=== PATIENT | male | born 1985 | race African-American/Black ===

== ENCOUNTER 2017-05-25 18:42 | Emergency (ER) | payer SELFPAY ==
[~2017-05-25] VITALS: Ht 180.3 cm; Wt 88.5 kg
[~2017-05-25 18:42] MED LIST: DILA100C PO; PHEN300C3 PO
[2017-05-25 18:45] VITALS: BP 153/99; PULSE 94; RESP 24; TEMP 97.3; O2SAT 100
--- NOTE | 2017-05-25 19:08 | PD ---
HPI Chief Complaint: Oral / Dental Pain or Problem Time Seen by Provider: 19:00 Travel History International Travel<30 days: No Contact w/Intl Traveler<30days: No Traveled to known affect area: No History of Present Illness HPI Patient comes in complaining of right lower mandible pain that began 2 days ago. Patient states he believes he had a seizure and hit his jaw on the dresser causing the pain. Pain has been getting worse for the past couple days. Patient states he's applied ice with no improvement of symptoms. Pain is worse trying to eat. Denies any radiation of pain. Describes pain as pressure-like in nature that radiates throughout his jaw. Patient denies anything like this in the past. States he is taking his seizure medicine as prescribed and is managed by his physician on [place]. Denies any fevers, difficulty swallowing, chest pain, shortness of breath, headaches, numbness or tingling anywhere, or neck pain. PFSH Past Medical History Diminished Hearing: No Seizures: Yes Social History Alcohol Use: No Tobacco Use: No Substance Use: No Allergies-Medications (Allergen,Severity, Reaction): Coded Allergies: No Known Allergies (Verified Allergy, Unknown, 05/25/17) Reported Meds & Prescriptions Reported Meds & Active Scripts Active Naprosyn (Naproxen) 500 Mg Tab 500 Mg PO Q12HR PRN Clindamycin (Clindamycin HCl) 150 Mg Cap 2 Cap PO Q6H 10 Days Phenytoin Extended 300 Mg Cap 300 Mg PO BID Reported Dilantin (Phenytoin Extended) Unknown Strength Cap Unknown Dose PO TID Review of Systems Except as stated in HPI: all other systems reviewed are Neg Physical Exam Narrative GENERAL: Well-developed, well nourished, in no acute distress, and non-ill appearing. SKIN: Focused skin assessment warm and dry. HEAD: Atraumatic. Normocephalic. EYES: Pupils equal and round. EOMI. No scleral icterus. No injection or drainage. ENT: No nasal bleeding or discharge. Mucous membranes pink and moist. Patient' s has a dental caries noted right lower molar with palpable and visible abscess noted. Floor of the mouth, submandibular, and submental are all soft palpation. NECK: Trachea midline. No cervical lymphadenopathy. Supple. No nuclear rigidity. RESPIRATORY: No accessory muscle use. No respiratory distress. MUSCULOSKELETAL: No obvious deformities. No clubbing. No cyanosis. No edema. Full range of motion. NEUROLOGICAL: Awake and alert. No obvious cranial nerve deficits. Motor grossly within normal limits. Normal speech. PSYCHIATRIC: Appropriate mood and affect; insight and judgment normal. Data Data Last Documented VS Vital Signs Date Time Temp Pulse Resp B/P (MAP) Pulse Ox O2 Delivery O2 Flow Rate FiO2 05/25/17 20:09 05/25/17 18:45 97.3 94 24 100 Room Air Orders Orders Mandible, Complete (Min 4vws) (05/25/17 ) Ibuprofen (Motrin) (05/25/17 19:30) Acetamin-Hydrocod 325-5 Mg ([place] 5-325 (05/25/17 19:30) Clindamycin (Cleocin) (05/25/17 19:30) [facility] Medical Decision Making Medical Screen Exam Complete: Yes Emergency Medical Condition: Yes Interpretation(s) X-ray of the mandible read by the radiologist shows: No acute disease. Differential Diagnosis Fracture, dental abscess, dental infection, dental caries, other Narrative Course The patient presented with dental pain. There is no fever. There is no significant facial swelling or evidence of cellulitis. There is poor dentition and evidence of drainable abscess. The abscess was drained intraorally. The patient tolerated the procedure well. There is no evidence of significant deep or invading abscess at this time. The patient will be placed on antibiotics and pain medication. The patient was instructed to follow up with a dentist. Warnings were discussed with the patient regarding worsening of infection. The patient is to return if pain worsens, develops progressive swelling or facial redness or fever. The patient agrees with plan. Patient in no obvious distress upon re-evaluation. All pertinent Radiology result(s) discussed with patient. Patient was asked if they wanted to speak to my attending, which the patient did not wish to do at this time. Discussed patient with Dr. Stark prior to discharge, who is in agreement with plan of care and disposition. Any questions/concerns in reference to patient diagnosis/ condition discussed and clarified prior to patient's discharge. Reinforced sheer importance of close follow up with patient's primary physician or primary care clinic and dentist. Instructed patient to return to ED immediately, if symptoms return/worsen. Pt showed understanding of above instructions. Further instructions and recommendations were detailed in discharge paperwork. Pt ambulated without difficulty out of ED at discharge. Procedures Procedure Narrative Verbal consent was obtained. Topical Hurricaine spray was used to successfully anesthetized the abscess. A #15 scalpel used to make 1 cm incision across the area of abscess and purulent discharge was drained. Patient tolerated procedure well. There were no complications. Patient reports improvement of symptoms. Diagnosis Primary Impression: Dental abscess Referrals: [facility] Dentist Patient Instructions: Dental Abscess (ED), Dental Caries (DC), General Instructions Additional Instructions: Follow-up with your primary care physician and dentist as soon as possible. Rinse mouth with warm salt water gargles. Take all medication as prescribed. Return to the emergency department if symptoms get worse. Med/Other Pt SpecificInfo: Prescription(s) given Scripts Naproxen (Naprosyn) 500 Mg Tab 500 MG PO Q12HR Y for PAIN SCALE 1 TO 10, #14 TAB 0 Refills Prov: Marilyn Stark MD 05/25/17 Clindamycin (Clindamycin) 150 Mg Cap 2 CAP PO Q6H for Infection for 10 Days, CAP 0 Refills Prov: Marilyn Stark MD 05/25/17 Disposition: 01 DISCHARGE HOME Condition: Stable Duarte Gunn May 25, 2017 19:08
[2017-05-25] MEDS ORDERED: ACETAMINOPHEN/HYDROcodone 325 MG/5 MG TAB PO ONE (19:30)
[2017-05-25] MEDS ORDERED: IBUPROFEN 800 MG TAB PO ONE (19:30)
[2017-05-25] MEDS ORDERED: CLINDAMYCIN 150 MG CAP PO ONE (19:30)
--- NOTE | 2017-05-25 19:33 | RADRPT ---
EXAM DATE/TIME: 05/25/2017 19:13 [place] COMPARISON: No previous studies available for comparison. INDICATIONS : Pain from blow to face during possible seizure. MEDICAL HISTORY : None. SURGICAL HISTORY : None. ENCOUNTER: Initial ACUITY: 1 day PAIN SCORE: 8/10 LOCATION: Right mandible. FINDINGS: Frontal, lateral, and oblique views of the mandible were performed. No fracture is seen. The condyl ar heads and necks appear normal. No dislocation is identified. Bony mineralization is normal. CONCLUSION: No acute disease. Lavell Barrientos MD on May 25, 2017 at 19:30 Board Certified Radiologist. This report was verified electronically.
[2017-05-25] MEDS ORDERED: NAPR500 PO (19:41)
[2017-05-25] MEDS ORDERED: CLIN1CAP5 PO (19:41)
== END 2017-05-25 20:10 | disposition home or self-care (01) ==
LOC: NEPE 18:42
DX: K04.7 Periapical abscess without sinus (principal); K02.9 Dental caries, unspecified; R56.9 Unspecified convulsions
CPT/HCPCS: 41800; 70110

== ENCOUNTER 2017-07-02 10:53 | Emergency (ER) | payer SELFPAY ==
[~2017-07-02] VITALS: Ht 180.3 cm; Wt 88.0 kg
[~2017-07-02 10:53] MED LIST changes: +CLIN1CAP5 PO; +NAPR500 PO
[2017-07-02 10:55] VITALS: BP 119/75; PULSE 78; RESP 18; TEMP 98.5; O2SAT 98
[2017-07-02] MEDS ORDERED: DILA100C PO (11:06)
--- NOTE | 2017-07-02 11:26 | PD ---
HPI Chief Complaint: Seizure Time Seen by Provider: 11:05 Travel History International Travel<30 days: No Contact w/Intl Traveler<30days: No Traveled to known affect area: No History of Present Illness HPI 32-year-old male presents to the emergency department for evaluation after having a seizure today. Patient states that he was at his mother's house when he had a seizure. He states he was watching TV and had a seizure while on the bed. He denies any head injury. Patient does have history of seizures. He states he is currently on Dilantin. He states he is taking this as prescribed. However, he states that he does not follow with a neurologist. Upon further questioning. He does state he was so neurologist a month ago who prescribed him his Dilantin. The patient denies any other medical problems. He takes no other prescribed medications. Patient states he has had seizures for approximately 8 years. He denies any incontinence or biting of his tongue. He said has no complaints at this time and states he feels well. No chest pressures breath. No headache. No abdominal pain. No nausea, vomiting, diarrhea. He has no other medical problems and takes no other prescribed medications. He denies any alcohol use or illicit drug use. Patient told me his last seizure prior to today was approximately 3 weeks ago. [facility] Past Medical History Diminished Hearing: No Seizures: Yes Tetanus Vaccination: Unknown Influenza Vaccination: No Past Surgical History Neurologic Surgery: Yes (BRAIN TUMOR RESECTION) Social History Alcohol Use: No Tobacco Use: No Substance Use: No Allergies-Medications (Allergen,Severity, Reaction): Coded Allergies: No Known Allergies (Verified Allergy, Unknown, 07/02/17) Reported Meds & Prescriptions Reported Meds & Active Scripts Active Reported Dilantin (Phenytoin Extended) 100 Mg Cap 100 Mg PO HS Review of Systems Except as stated in HPI: all other systems reviewed are Neg Physical Exam Narrative GENERAL: Well-nourished, well-developed male patient, afebrile. SKIN: Focused skin assessment warm/dry. No lacerations or abrasions HEAD: Normocephalic. Atraumatic. ENT: Mucosa pink and moist. No erythema or exudates. No uvular edema. No uvular , palatal, or tonsillar deviation. Airway patent. Nasal turbinates appear normal without nasal blood, purulent drainage or septal hematoma. Bilateral tympanic membranes are clear without erythema or perforation. EYES: No scleral icterus. No injection or drainage. NECK: Supple, trachea midline. No JVD or lymphadenopathy. CARDIOVASCULAR: Regular rate and rhythm without murmurs, gallops, or rubs. RESPIRATORY: Breath sounds equal bilaterally. No accessory muscle use. Lungs sounds are clear to auscultation. GASTROINTESTINAL: Abdomen soft, non-tender, nondistended. MUSCULOSKELETAL: No cyanosis, or edema. Bilateral upper and lower extremity strength 5/5. All extremities are neurovascularly intact. BACK: Nontender without obvious deformity. No CVA tenderness. Data Data Last Documented VS Vital Signs Date Time Temp Pulse Resp B/P (MAP) Pulse Ox O2 Delivery O2 Flow Rate FiO2 07/02/17 14:53 07/02/17 13:45 67 15 100 Room Air 07/02/17 10:55 98.5 Orders Orders Complete Blood Count With Diff (07/02/17 11:19) Phenytoin (Dilantin) (07/02/17 11:19) Drug Screen, Random Urine (07/02/17 11:19) Electrocardiogram (07/02/17 ) Blood Glucose (07/02/17 11:19) Ecg Monitoring (07/02/17 11:19) Iv Access Insert/Monitor (07/02/17 11:19) Oximetry (07/02/17 11:19) Comprehensive Metabolic Panel (07/02/17 11:19) Sodium Chloride 0.9% Flush (Ns Flush) (07/02/17 11:30) Urinalysis - C+S If Indicated (07/02/17 11:19) Magnesium (Mg) (07/02/17 11:19) Fosphenytoin Inj (Cerebyx Inj) (07/02/17 13:30) Sodium Chlor 0.9% 1000 Ml Inj (Ns 1000 M (07/02/17 13:30) Urine Culture (07/02/17 13:41) Labs Laboratory Tests Test 07/02/17 11:35 07/02/17 13:41 White Blood Count 9.4 TH/MM3 Red Blood Count 5.23 MIL/MM3 Hemoglobin 16.7 GM/DL Hematocrit 48.9 % Mean Corpuscular Volume 93.5 FL Mean Corpuscular Hemoglobin 32.0 PG Mean Corpuscular Hemoglobin Concent 34.2 % Red Cell Distribution Width 14.3 % Platelet Count 122 TH/MM3 Mean Platelet Volume 9.3 FL Neutrophils (%) (Auto) 75.3 % Lymphocytes (%) (Auto) 18.3 % Monocytes (%) (Auto) 5.7 % Eosinophils (%) (Auto) 0.4 % Basophils (%) (Auto) 0.3 % Neutrophils # (Auto) 7.1 TH/MM3 Lymphocytes # (Auto) 1.7 TH/MM3 Monocytes # (Auto) 0.5 TH/MM3 Eosinophils # (Auto) 0.0 TH/MM3 Basophils # (Auto) 0.0 TH/MM3 CBC Comment DIFF FINAL Differential Comment Blood Urea Nitrogen 19 MG/DL Creatinine 1.55 MG/DL Random Glucose 79 MG/DL Total Protein 9.2 GM/DL Albumin 4.8 GM/DL Calcium Level 10.0 MG/DL Magnesium Level 2.1 MG/DL Alkaline Phosphatase 109 U/L Aspartate Amino Transf (AST/SGOT) 76 U/L Alanine Aminotransferase (ALT/SGPT) 136 U/L Total Bilirubin 0.4 MG/DL Sodium Level 137 MEQ/L Potassium Level 3.7 MEQ/L Chloride Level 102 MEQ/L Carbon Dioxide Level 26.3 MEQ/L Anion Gap 9 MEQ/L Estimat Glomerular Filtration Rate 63 ML/MIN Phenytoin (Dilantin) Level 3.4 MCG/ML Urine Color YELLOW Urine Turbidity HAZY Urine pH 5.5 Urine Specific [place] 1.022 Urine Protein 30 mg/dL Urine Glucose (UA) NEG mg/dL Urine Ketones NEG mg/dL Urine Occult Blood NEG Urine Nitrite NEG Urine Bilirubin NEG Urine Urobilinogen LESS THAN 2.0 MG/DL Urine Leukocyte Esterase SMALL Urine RBC 2 /hpf Urine WBC 14 /hpf Urine Squamous Epithelial Cells 1 /hpf Urine Hyaline Casts 6 /lpf Urine Granular Casts 1 /lpf Urine Mucus FEW /lpf Microscopic Urinalysis Comment CULTURE INDICATED Urine Opiates Screen NEG Urine Barbiturates Screen NEG Urine Amphetamines Screen NEG Urine Benzodiazepines Screen NEG Urine Cocaine Screen NEG Urine Cannabinoids Screen POS MDM Medical Decision Making Medical Screen Exam Complete: Yes Emergency Medical Condition: Yes Medical Record Reviewed: Yes Differential Diagnosis Recurrent seizure versus medication noncompliance versus electrolyte abnormality Narrative Course 32-year-old male presents to the emergency department for evaluation of seizure. Patient has history of seizures. He states he feels well at this time. He states he is on Dilantin is compliant with it. CBC, CMP, magnesium, UA, urine drug screen, Dilantin level are ordered and pending. CBC shows no acute abnormality. CMP shows BUN 19, creatinine 1.55, AST 76, ALT 136. Magnesium is 2.1. UA is negative for acute infection. Dilantin level is 3.4. UDS is positive for cannabinoids. Patient is given 1 g fosphenytoin IV, normal saline IV fluids. Patient is instructed to follow-up with his neurologist due to subtherapeutic Dilantin level. He verbalizes agreement and understanding of this. The patient was discharged in stable condition with instructions, including return instructions and follow up instructions. Diagnosis Primary Impression: Seizure Referrals: Neurologist 1 day Patient Instructions: General Instructions, Recurrent Seizures in Adults (ED) Additional Instructions: Follow-up with your neurologist. Your Dilantin level was subtherapeutic. Return to the emergency department for any acute worsening of symptoms. Med/Other Pt SpecificInfo: No Change to Meds Disposition: 01 DISCHARGE HOME Condition: Stable Maritza Leon Jul 02, 2017 11:26
[2017-07-02] MEDS ORDERED: SODIUM CHLORIDE 0.9% FLUSH 10 ML FLUSH IVF PRN (11:30)
[2017-07-02 11:41] VITALS: O2SAT 99
[2017-07-02 12:06] LABS: AUTOMATED NEUTROPHIL # 7.1 TH/MM3 (1.8-7.7); BASOPHIL % 0.3 % (0.0-2.0); EOSINOPHIL % 0.4 % (0.0-4.0); HEMATOCRIT 48.9 % (39.0-51.0); HEMO FLAGS DIFF FINAL; LYMPH % 18.3 % (9.0-44.0); LYMPHOCYTE # 1.7 TH/MM3 (1.0-4.8); MEAN CELL VOLUME 93.5 FL (80.0-100.0); MEAN CORPUSCULAR HGB CONC 34.2 % (32.0-36.0); MONO % 5.7 % (0.0-8.0); NEUT % 75.3 % (16.0-70.0); PLATELET COUNT 122 TH/MM3 (150-450); RED BLOOD COUNT 5.23 MIL/MM3 (4.50-5.90); RED CELL DISTRIBUTION WIDTH 14.3 % (11.6-17.2); WHITE BLOOD COUNT 9.4 TH/MM3 (4.0-11.0)
[2017-07-02 13:02] LABS: ANION GAP 9 MEQ/L (5-15); AST (GOT) 76 U/L (15-37); BICARBONATE 26.3 MEQ/L (21.0-32.0); BLOOD UREA NITROGEN 19 MG/DL (7-18); CHLORIDE 102 MEQ/L (98-107); GLOMERULAR FILTRATION RATE 63 ML/MIN (>89); MAGNESIUM 2.1 MG/DL (1.5-2.5); POTASSIUM 3.7 MEQ/L (3.5-5.1); SODIUM (NA) 137 MEQ/L (136-145)
[2017-07-02 13:03] LABS: ALT (GPT) 136 U/L (12-78)
[2017-07-02 13:06] LABS: ALKALINE PHOSPHATASE 109 U/L (45-117); TOTAL BILIRUBIN ADULT 0.4 MG/DL (0.2-1.0)
[2017-07-02] MEDS ORDERED: SODIUM CHLOR 0.9% 1000 ML INJ 1,000 ML IV ONE (13:30)
[2017-07-02] MEDS ORDERED: FOSPHENYTOIN INJ 1,000 MGPE in SODIUM CHLORIDE 0.9% INJ 50 ML IV ONE (13:30)
[2017-07-02 13:45] VITALS: BP 135/73; PULSE 67; RESP 15; O2SAT 100
--- NOTE | 2017-07-02 13:56 | EKG ---
Date Performed: 07/02/2017 Time Performed: 11:46:20 PTAGE: 32 years EKG: ECTOPIC ATRIAL RHYTHM BORDERLINE RIGHT AXIS DEVIATION BORDERLINE ECG NO PREVIOUS TRACING DOCTOR: Tho Stokes Interpretating Date/Time 07/02/2017 13:54:26
[2017-07-02 14:29] LABS: BLOOD, URINE NEG (NEG); GLUCOSE,URINE NEG (NEG); GRANULAR CAST, URINE 1 /lpf; HYALINE CAST, URINE 6 /lpf (RARE); KETONE, URINE NEG (NEG); MUCUS URINE FEW /lpf (OCC); NITRITE,URINE NEG (NEG); PH, URINE 5.5 (5.0-8.5); SQUAMOUS EPITHELIAL CELL URINE 1 /hpf (0-5); URINE COLOR YELLOW (YELLW/STRAW)
[2017-07-02 14:35] LABS: COMMENT (UR) CULTURE INDICATED; CULTURE IF INDICATED CULTURE INDICATED
== END 2017-07-02 14:53 | disposition home or self-care (01) ==
LOC: NEPE 10:53
DX: R56.9 Unspecified convulsions (principal)
CPT/HCPCS: 80053; 80185; 80307; 81001; 83735; 85025; 87086; 93005; 96361; 96365; 99284; J7030; Q2009